=== PATIENT | female | born 1970 | race Caucasian/White ===

== ENCOUNTER → 2019-05-30 | Outpatient (CLI) | payer OTHER ==
--- NOTE | 2019-05-30 12:52 | RADIOLOGY REPORT (SQ) ---
EXAM DESCRIPTION: MRI ABDOMEN COMBO COMPLETED DATE/TIME: 05/30/2019 9:43 am REASON FOR STUDY: R93.89 ABNORMAL FINDINGS ON DX IMAGING OF OT BODY STRUCTURES R93.89 ABNORMAL FIN DINGS ON DX IMAGING OF OTH BODY STRUCTURE COMPARISON: None. TECHNIQUE: Multiplanar multisequence imaging performed without and with contrast including sagittal, axial and coronal T2, axial T1, axial gradient fat sat T1, axial, sagittal and coronal fat sat T1 po st contrast. CONTRAST TYPE AND DOSE: 20 mL Dotarem. RENAL FUNCTION: GFR > 60. LIMITATIONS: None. FINDINGS: LIVER: Liver is enlarged, stable. There are unchanged T2 hyperintense foci within the left hepatic lobe compatible with cysts. Previously seen areas of peripheral wedge-shaped transient enha ncement are not appreciated on this exam. No new focal hepatic lesions. SPLEEN: Normal size. No focal lesions. PANCREAS: No masses. No adjacent inflammation or peripancreatic fluid collections. Pancreatic duct no t dilated. GALLBLADDER: No masses. No stones. No gallbladder wall thickening or pericholecystic fluid. ADRENAL GLANDS: Unchanged 1.5 cm left adrenal adenoma. Unremarkable right adrenal gland. RIGHT KIDNEY AND URETER: No masses. No hydronephrosis. Subcentimeter cyst, stable. LEFT KIDNEY AND URETER: No masses. No hydronephrosis. AORTA AND VESSELS: No aneurysm. No dissection. Renal arteries, SMA, celiac without stenosis. RETROPERITONEUM: No retroperitoneal adenopathy, hemorrhage or masses. BOWEL: No visualized masses. No inflammation. No significant dilatation. ABDOMINAL WALL AND PERITONEUM: No hernias. No free fluid. BONES: No acute or significant findings. OTHER: No other significant finding. IMPRESSION: 1. Unchanged punctate left hepatic lobe cyst. Previously seen peripheral wedge shaped areas of transient enhancement are not appreciated on this exam, likely representing transient hepati c attenuation differences (THADs) No new focal masses or abnormal enhancement. 2. Stable benign left adrenal adenoma. TECHNICAL DOCUMENTATION: JOB ID: [id number] [employer]- All Rights Reserved Reading location - IP/workstation name: [email or web address]
== END ==
LOC: RAD 08:33
PROVIDERS: ATTEND Internal Medicine Gastroenterology
DX: D35.02 Benign neoplasm of left adrenal gland (principal); K76.89 Other specified diseases of liver
CPT/HCPCS: 82565; 74183; A9576

== ENCOUNTER 2019-10-05 10:07 | Emergency (ER) | payer OTHER ==
[2019-10-05] MEDS ORDERED: KETOROLAC TROMETHAMINE 60 MG/2 ML SDV IM ONE (11:52)
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
[2019-10-05 12:30] VITALS: BP 131/79
== END 2019-10-05 12:30 | disposition home or self-care (01) ==
LOC: ER 10:07
DX: M54.2 Cervicalgia (principal); M54.5 Low back pain; M79.10 Myalgia, unspecified site; X50.0XXA Overexertion from strenuous movement or load, initial encounter; F17.200 Nicotine dependence, unspecified, uncomplicated; E78.00 Pure hypercholesterolemia, unspecified; I10 Essential (primary) hypertension; Z90.710 Acquired absence of both cervix and uterus
CPT/HCPCS: 99283; 96372; J1885

== ENCOUNTER → 2020-07-07 | Outpatient (CLI) | payer OTHER | LOC: WI 08:32 | PROVIDERS: ATTEND Surgery | DX: Z08 Encounter for follow-up examination after completed treatment for malignant neoplasm (principal); Z85.3 Personal history of malignant neoplasm of breast | CPT/HCPCS: 77066 ==

== ENCOUNTER 2020-11-21 09:34 | Emergency (ER) | payer OTHER ==
[2020-11-21 09:41] VITALS: BP 127/62
[2020-11-21] MEDS ORDERED: PREDNISONE 20 MG TABLET PO ONE (11:01)
[2020-11-21] MEDS ORDERED: FAMOTIDINE 20 MG TABLET PO ONE (11:01)
--- NOTE | 2020-11-21 11:04 | ER Document Report ---
HPI - HPI Time Seen by Provider: 11/21/20 10:17 Pain Level: Denies Context: Patient is a 50-year-old female presents emergency department with a chief complaint of a rash. Patient states that her rash started this morning. States that 2 days ago she ended up having a CT with contrast. Denies any shortness of breath or difficulty breathing. States that the rash is pruritic and it is all over her body, specifically on her right anterior chest. - CONSTITUTIONAL Constitutional: DENIES: Fever, Chills - MUSCULOSKELETAL Musculoskeletal: DENIES: Extremity pain, Neck Pain, Swelling - DERM Skin Color: Normal Skin Problems: Rash - Entire body Past Medical History - Social History Smoking Status: Current Every Day Smoker Frequency of alcohol use: Heavy Drug Abuse: None Family History: Reviewed & Not Pertinent - Past Medical History Cardiac Medical History: Reports: Hx Hypercholesterolemia, Hx Hypertension Endocrine Medical History: Reports: Hx Hypothyroidism. Denies: Hx Diabetes Mellitus Type 1, Hx Diabetes Mellitus Type 2 Malignancy Medical History: Reports: Hx Breast Cancer Past Surgical History: Reports: Hx Breast Surgery - 2017 lumpectomy for breast CA. Status post XRT., Hx Hysterectomy Vertical Provider Document - CONSTITUTIONAL Agree With Documented VS: Yes Exam Limitations: No Limitations General Appearance: No Apparent Distress - INFECTION CONTROL TRAVEL OUTSIDE OF THE [place] IN LAST 30 DAYS: No - HEENT HEENT: Atraumatic, Normocephalic, PERRLA - NECK Neck: Normal Inspection - RESPIRATORY Respiratory: Breath Sounds Normal, No Respiratory Distress - CARDIOVASCULAR Cardiovascular: Regular Rate, Regular Rhythm Pulses: Normal: Radial - MUSCULOSKELETAL/EXTREMETIES Musculoskeletal/Extremeties: FROM, No Edema - NEURO Level of Consciousness: Awake, Alert, Appropriate - DERM Integumentary: Warm, Dry, Rash - Entire body, blanchable Course - Re-evaluation Re-evalutation: 11/21/20 Airway is patent. No respiratory distress noted. Lung sounds clear. Patient will be started on Pepcid and prednisone. She will follow-up with her primary care provider. Follow-up precautions were given. Verbal discharge instructions were given to the patient. They verbalized understanding. They are stable for discharge. - Vital Signs Vital signs: Temp Pulse Resp BP Pulse Ox 98.2 F 87 18 127/62 H 100 11/21/20 09:38 11/21/20 09:38 11/21/20 09:38 11/21/20 09:38 11/21/20 09:38 - Laboratory Results Critical Laboratory Results Reviewed: No Critical Results - Radiology Results Critical Radiology Results Reviewed: No Critical Results Discharge - Discharge Clinical Impression: Rash Condition: Stable Disposition: HOME, SELF-CARE Additional Instructions: You were seen today in the emergency department for rash. Take Benadryl [id number], 50 mg every 4-6 hours. Take the Pepcid and prednisone as prescribed. Follow-up with your primary care provider in regards to this visit. Prescriptions: Famotidine [Pepcid 20 mg Tablet] 40 mg PO BID #20 tablet Prednisone 10 mg PO ASDIR PRN #21 tab.ds.pk PRN Reason: Referrals: PEDRO JUAN FNP-C [Primary Care Provider] - Follow up in 3-5 days
== END 2020-11-21 11:09 | disposition home or self-care (01) ==
LOC: ER 09:34
DX: R21 Rash and other nonspecific skin eruption (principal); F17.200 Nicotine dependence, unspecified, uncomplicated; E78.00 Pure hypercholesterolemia, unspecified; I10 Essential (primary) hypertension; Z85.3 Personal history of malignant neoplasm of breast
CPT/HCPCS: 99283; J7512

== ENCOUNTER → 2020-11-21 | Outpatient (CLI) | payer OTHER ==
--- NOTE | 2020-11-21 09:48 | RADIOLOGY REPORT (SQ) ---
EXAM DESCRIPTION: MRI ABDOMEN COMBO IMAGES COMPLETED DATE/TIME: 11/21/2020 9:17 am REASON FOR STUDY: (K76.0)FATTY (CHANGE OF) LIVER, NOT ELSEWHERE CLASSIFIED K76.0 FATTY (CHANGE OF) LIVER, NOT ELSEWHERE CLASSIFIED COMPARISON: 11/19/2020 TECHNIQUE: Multiplanar multisequence imaging performed without and with contrast including sagittal, axial and coronal T2, axial T1, axial gradient fat sat T1, axial, sagittal and coronal fat sat T1 po st contrast. CONTRAST TYPE AND DOSE: 20 mL Prohance. RENAL FUNCTION: Not indicated. ACR Type II contrast agent associated with few, if any, unconfounded cases of NSF LIMITATIONS: None. FINDINGS: LIVER: Normal signal without evidence of hepatic steatosis. Normal size. No masses. No d ilated ducts. CBD normal. Incidental note is made of a 9 mm simple cyst within the left hepatic lobe . SPLEEN: Normal size. No focal lesions. PANCREAS: No masses. No adjacent inflammation or peripancreatic fluid collections. Pancreatic duct no t dilated. GALLBLADDER: No masses. No stones. No gallbladder wall thickening or pericholecystic fluid. ADRENAL GLANDS: In/ out of phase imaging confirms the composition of any 1.7 x 1.6 x 1.2 cm lipid jas h adenoma within the left adrenal gland. RIGHT KIDNEY AND URETER: No masses. No hydronephrosis. Incidental note is made of a tiny (7 mm) sim ple cyst. LEFT KIDNEY AND URETER: No masses. No hydronephrosis. AORTA AND VESSELS: No aneurysm. No dissection. Renal arteries, SMA, celiac without stenosis. RETROPERITONEUM: No retroperitoneal adenopathy, hemorrhage or masses. BOWEL: No visualized masses. No inflammation. No significant dilatation. ABDOMINAL WALL AND PERITONEUM: No hernias. No free fluid. BONES: No acute or significant findings. OTHER: No other significant finding. IMPRESSION: No evidence of history-queried hepatic steatosis. No hepatic mass. Incidental finding of a 1.7 cm lipid rich adenoma within the left adrenal gland and simple cysts within the left hepatic lobe and right kidney. TECHNICAL DOCUMENTATION: JOB ID: [id number] [employer]- All Rights Reserved Reading location - IP/workstation name: [email or web address]
== END ==
LOC: RAD 08:08
PROVIDERS: ATTEND Internal Medicine Gastroenterology
DX: K76.0 Fatty (change of) liver, not elsewhere classified (principal); K76.89 Other specified diseases of liver; N28.1 Cyst of kidney, acquired; D35.02 Benign neoplasm of left adrenal gland
CPT/HCPCS: 74183; A9576